=== PATIENT | female | born 1985 | race Caucasian/White ===

== ENCOUNTER 2016-09-26 11:18 | Emergency (ER) | payer MEDICAID ==
[~2016-09-26] VITALS: Ht 167.6 cm; Wt 71.5 kg
[2016-09-26 11:22] VITALS: Ht 167.6 cm; Wt 71.5 kg
[2016-09-26 12:59] LABS: ADD SCAN DIFF NO
[2016-09-26 13:02] LABS: BASOPHILS % 0.1 % (0.0-2.0); EOSINOPHILS # 0.1 10^3/ul (0.0-0.5); EOSINOPHILS % 0.6 % (0.0-7.0); HEMATOCRIT 37.4 % (37.0-47.0); HEMOGLOBIN 12.6 g/dl (12.0-16.0); LYMPHOCYTES # 1.9 10^3/ul (0.8-2.9); LYMPHOCYTES % 18.9 % (15.0-51.0); MEAN CORPUSCULAR HEMOGLOBIN 30.1 pg (29.0-33.0); MEAN CORPUSCULAR HGB CONC 33.7 g/dl (32.0-37.0); MEAN CORPUSCULAR VOLUME 89.5 fl (82.0-101.0); MEAN PLATELET VOLUME 9.5 fl (7.4-10.4); MONOCYTE # 0.7 10^3/ul (0.3-0.9); MONOCYTES % 6.9 % (0.0-11.0); NEUTROPHIL # 7.4 10^3/ul (1.6-7.5); NEUTROPHILS % 72.8 % (39.0-77.0); PLATELET COUNT 227 10^3/UL (140-415); RED BLOOD COUNT 4.18 10^6/ul (4.20-5.40); RED CELL DISTRIBUTION WIDTH 12.7 % (11.5-14.5); WHITE BLOOD COUNT 10.2 10^3/ul (4.8-10.8)
[2016-09-26 13:07] LABS: ADD UMIC NO; URINE BILIRUBIN (Dip) NEGATIVE (NEGATIVE); URINE BLOOD (Dip) NEGATIVE (NEGATIVE); URINE COLOR LT. YELLOW (YELLOW); URINE GLUCOSE (Dip) NEGATIVE (NEGATIVE); URINE KETONES (Dip) NEGATIVE (NEGATIVE); URINE LEUKOCYTE ESTERASE (Dip) NEGATIVE (NEGATIVE); URINE NITRITE (Dip) NEGATIVE (NEGATIVE); URINE TOTAL PROTEIN (Dip) NEGATIVE (NEGATIVE); URINE UROBILINOGEN (Dip) 0.2 E.U./dL (0.1-1.0)
[2016-09-26 13:17] LABS: ALBUMIN 4.3 g/dl (3.3-4.9); POTASSIUM 3.7 mmol/L (3.5-5.1)
[2016-09-26 13:19] LABS: BILIRUBIN,INDIRECT 0.3 mg/dl (0-1.1); BILIRUBIN,TOTAL 0.3 mg/dl (0.2-1.3); CREATININE 0.53 mg/dl (0.44-1.00)
[2016-09-26 13:20] LABS: ALBUMIN/GLOBULIN RATIO 1.22; CALCIUM 9.3 mg/dl (8.4-10.2); TOTAL PROTEIN 7.8 g/dl (6.1-8.1)
--- NOTE | 2016-09-26 13:31 | ERD ---
ER Documentation Chief Complaint Date/Time DATE: 09/26/16 TIME: 13:29 Chief Complaint GETS OCCASIONAL ANXIETY AND HTN 5 MONTHS HPI 30-year-old female who is A0 approximately 20 weeks comes emergency department with history of tachycardia that is subjective while at work today. Patient reports that she has a history of anxiety and was told that she has gets tachycardia occasionally, she is a little reluctant to describe however states that she had a pneumatic experience at the age of 13 and occasionally gets tachycardia. 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 She at this time denies any palpitations or dizziness. She reports that she has not had any blood pressure issues during her . At this time she denies headache, blurry vision, abdominal pain, nausea or vomiting. ROS All systems reviewed and are negative except as per history of present illness. Allergies Allergies: Coded Allergies: No Known Allergy (Unverified , 09/26/16) Physical Exam Vitals Vital Signs Date Time Temp Pulse Resp B/P Pulse Ox O2 Delivery O2 Flow Rate FiO2 09/26/16 11:22 98.3 86 18 120/78 100 Physical Exam General: Well-developed, well-nourished. The patient appears in no acute distress. HEENT: Head is normocephalic, atraumatic. No scleral icterus. Neck: Supple. Nontender. Lungs: Clear to auscultation. Normal air movement. Heart: Regular rate and rhythm. S1 and S2 are normal. No murmurs, gallops, or rubs. Abdomen: Soft, nontender, nondistended. Appropriate fundal height. Extremities: No clubbing or cyanosis. Normal pulses. Moving extremities x 4. No weakness. Neurologic: Alert and oriented 3. No focal deficits. Skin: Normal turgor. No rash or lesions. Result Diagram: 09/26/16 1245 09/26/16 1245 Results 24 hrs Laboratory Tests Test 09/26/16 12:42 09/26/16 12:45 Urine Color LT. YELLOW Urine Clarity CLEAR Urine pH 6.0 Urine Specific [place] <=1.005 Urine Ketones NEGATIVE Urine Nitrite NEGATIVE Urine Bilirubin NEGATIVE Urine Urobilinogen 0.2 E.U./dL Urine Leukocyte Esterase NEGATIVE Urine Hemoglobin NEGATIVE Urine Glucose NEGATIVE% Urine Total Protein NEGATIVE White Blood Count 10.210^3/ul Red Blood Count 4.1810^6/ul Hemoglobin 12.6g/dl Hematocrit 37.4% Mean Corpuscular Volume 89.5fl Mean Corpuscular Hemoglobin 30.1pg Mean Corpuscular Hemoglobin Concent 33.7g/dl Red Cell Distribution Width 12.7% Platelet Count 82828^3/UL Mean Platelet Volume 9.5fl Neutrophils % 72.8% Lymphocytes % 18.9% Monocytes % 6.9% Eosinophils % 0.6% Basophils % 0.1% Nucleated Red Blood Cells % 0.0/100WBC Neutrophils # 7.410^3/ul Lymphocytes # 1.910^3/ul Monocytes # 0.710^3/ul Eosinophils # 0.110^3/ul Basophils # 0.010^3/ul Nucleated Red Blood Cells # 0.010^3/ul Sodium Level 137mmol/L Potassium Level 3.7mmol/L Chloride Level 102mmol/L Carbon Dioxide Level 23mmol/L Anion Gap 16 Blood Urea Nitrogen 7mg/dl Creatinine 0.53mg/dl Glucose Level 71mg/dl Calcium Level 9.3mg/dl Total Bilirubin 0.3mg/dl Direct Bilirubin 0.00mg/dl Indirect Bilirubin 0.3mg/dl Aspartate Amino Transf (AST/SGOT) 23IU/L Alanine Aminotransferase (ALT/SGPT) 33IU/L Alkaline Phosphatase 56IU/L Total Protein 7.8g/dl Albumin 4.3g/dl Globulin 3.50g/dl Albumin/Globulin Ratio 1.22 Beta HCG, Quantitative 94085.0mIU/ml 12-lead EKG(interpreted by supervising physician): Dr. Zafar Rate/Rhythm: Normal Sinus Rhythm, rate of 72 QRS, ST, T-waves: No changes consistent w/ acute ischemia, no intervals, no dysrhythmias, no ectopy Impression: No evidence of ischemia or arrhythmia PROCEDURE: US OB. CLINICAL INDICATION: Size and dates , palpitations TECHNIQUE: Multiple sonographic images of the pelvis and gravid uterus were obtained. The images were reviewed on a PACS workstation. COMPARISON: No prior studies are available for comparison. FINDINGS: There is a single viable intrauterine gestation. Cardiac activity is present with 137 beats per minute. There is a breech presentation. The placenta is posterior. There is no evidence for an abruption or placenta previa. There is a normal amount of amniotic fluid with a MVP= 3.8 cm. Measurements were made in order to determine age. The results are as follows: BPD = 4.9 cm HC = 18.1 cm AC = 16.8 cm FL = 3.2 cm Estimated gestational age of approximately 20 weeks and 6 days based on ultrasound measurements. Clinical age: 20 weeks and 0 days. The estimated date of delivery is 02/07/17, based on ultrasound measurements. The EFW = 387 g, 91%, based on LMP age. The ovaries were not visualized. RPTAT: AA IMPRESSION: Single viable intrauterine gestation of approximately 20 weeks and 6 days based on ultrasound measurements. anatomy was not evaluated. .Connor Santillan MD, MD Date Time Electronically viewed and signed by .Connor Santillan MD, MD on 09/26/2016 14: 36 .S/ Procedures/MDM 30-year-old female comes in with a history of tachycardia, she is currently approximately 20 weeks . Her vitals are reviewed, she is not tachycardic right now, her blood pressure was in normal limits . She is asymptomatic, and her history indicates that she has had a similar episode prior, related to anxiety. EKG was normal, all labs are unremarkable, there is no evidence of anemia or electrolyte abnormalities. Urine does not show any evidence of urinary tract infection and pelvic ultrasound shows a single live intrauterine . Departure Diagnosis: Primary Impression: Anxiety Additional Impression: Second trimester Condition: NEAL Dean PA-C September 26, 2016 13:31
--- NOTE | 2016-09-26 14:36 | RADRPT ---
PROCEDURE: US OB. CLINICAL INDICATION: Size and dates , palpitations TECHNIQUE: Multiple sonographic images of the pelvis and gravid uterus were obtained. The images were reviewed on a PACS workstation. COMPARISON: No prior studies are available for comparison. FINDINGS: There is a single viable intrauterine gestation. Cardiac activity is present with 137 beats per min [place]. There is a breech presentation. The placenta is posterior. There is no evidence for an abruption or placenta previa. There is a normal amount of amniotic fluid with a MVP= 3.8 cm. Measurements were made in order to determine age. The results are as follows: BPD =4.9 cm HC =18.1 cm AC =16.8 cm FL =3.2 cm Estimated gestational age of approximately 20 weeks and 6 days based on ultrasound measurements. Clinical age: 20 weeks and 0 days. The estimated date of delivery is 02/07/17, based on ultrasound measurements. The EFW = 387 g, 91%, based on LMP age. The ovaries were not visualized. RPTAT: AA IMPRESSION: Single viable intrauterine gestation of approximately 20 weeks and 6 days based on ultrasound measu rements. anatomy was not evaluated. .Connor Santillan MD, Date Time Electronically viewed and signed by .Connor Santillan MD, MD on 09/26/2016 14:36 .S/
[2016-09-26 14:57] VITALS: BP 125/64; PULSE 73; RESP 18; TEMP 98.2
== END 2016-09-26 15:00 | disposition home or self-care (01) ==
LOC: FTE 11:18
DX: O99.342 Other mental disorders complicating pregnancy, second trimester (principal); F41.9 Anxiety disorder, unspecified; R00.2 Palpitations; Z3A.20 20 weeks gestation of pregnancy
CPT/HCPCS: 76805; 80053; 81003; 84702; 85025; 86900; 86901; 93005; Z7502